=== PATIENT | female | born 1945 | race Caucasian/White ===

== ENCOUNTER → 2016-07-26 | Outpatient (CLI) | payer OTHER, MEDICARE ==
[2016-07-26 13:35] LABS: HEMOGLOBIN A1C 8.07 % (4.2-6.0); MEAN BLOOD GLUCOSE (CALC) 182.731 mg/dL
== END ==
LOC: MOB LAB 10:19
DX: E11.9 Type 2 diabetes mellitus without complications (principal); Z79.4 Long term (current) use of insulin
CPT/HCPCS: 36415; 83036

== ENCOUNTER → 2016-09-27 | Outpatient (CLI) | payer OTHER, MEDICARE ==
[2016-09-27 17:01] LABS: BUN/CREATININE RATIO 24.16 (6-20); CALCIUM 9.3 mg/dL (8.7-10.7); SERUM ALBUMIN 3.2 g/dL (3.5-4.8)
[2016-09-27 18:06] LABS: FREE T4 (FREE THYROXINE) 1.2 ng/dL (0.93-1.71)
== END ==
LOC: MOB LAB 14:29
DX: E11.9 Type 2 diabetes mellitus without complications (principal); Z79.4 Long term (current) use of insulin; E03.9 Hypothyroidism, unspecified; I10 Essential (primary) hypertension
CPT/HCPCS: 36415; 80053; 84439; 84443

== ENCOUNTER → 2016-11-24 | Outpatient (CLI) | payer OTHER, MEDICARE | LOC: MMPC 11:11 | DX: N12 Tubulo-interstitial nephritis, not specified as acute or chronic (principal); E11.9 Type 2 diabetes mellitus without complications; F03.90 Unspecified dementia, unspecified severity, without behavioral disturbance, psychotic disturbance, mood disturbance, and anxiety; I25.10 Atherosclerotic heart disease of native coronary artery without angina pectoris; I10 Essential (primary) hypertension; E78.5 Hyperlipidemia, unspecified; E66.9 Obesity, unspecified | CPT/HCPCS: 83037; 99213; G0463 ==

== ENCOUNTER 2018-01-28 20:21 | Inpatient (IN) ==
--- NOTE | 2018-01-28 21:08 | EKG ---
[address] [place] [address] Measurements Intervals [place] Rate: 81 P: 86 AK: 156 QRS: -1 QRSD: 97 T: 31 QT: 449 QTc: 486 Interpretive Statements SINUS RHYTHM NONSPECIFIC MODERATE ST DEPRESSION PROLONGED QT INTERVAL Compared to ECG 01/16/2018 08:37:19 Prolonged QT interval now present ST (T wave) deviation still present Electronically Signed On 01-30-18 15:19:08 MDT by Eric Champion [email or web address]
--- NOTE | 2018-01-28 21:28 | DI ---
EXAM: XR Chest, 2 Views CLINICAL HISTORY: ITS.REASON dyspnea Physician Notes: Tech Comments: TECHNIQUE: Frontal and lateral views of the chest. COMPARISON: No relevant prior studies available. FINDINGS: Lungs: Unremarkable. No consolidation. Pleural space: Unremarkable. No pneumothorax. Heart: Unremarkable. No cardiomegaly. Mediastinum: Unremarkable. Bones/joints: Unremarkable. IMPRESSION: Normal chest x-rays.
[2018-01-28 21:35] LABS: BASOPHILS # (AUTO) 0.07 10*3/UL; BASOPHILS % (AUTO) 0.8 % (0-1); EOSINOPHILS # (AUTO) 0.28 10*3/UL; EOSINOPHILS % (AUTO) 3.4 % (0-8); Hematocrit [HCT] 29.4 % (37.0-47.0); Hemoglobin [HGB] 9.6 g/dL (12.0-16.0); LYMPHOCYTES # (AUTO) 1.28 10*3/uL; MEAN CORPUSCULAR HEMOGLOBIN 32.8 PG (27-31); MEAN CORPUSCULAR HGB CONC 32.7 g/dL (33-37); MEAN CORPUSCULAR VOLUME 100.3 FL (81-99); MEAN PLATELET VOLUME 10.6 FL (7.4-12.2); MONOCYTES # (AUTO) 1.08 10*3/UL (0.3-0.8); NEUTROPHILS # (AUTO) 5.59 10*3/UL; NEUTROPHILS % (AUTO) 67.3 % (50-80); RED BLOOD COUNT 2.93 10^6/uL (4.20-5.40)
[2018-01-28 21:47] LABS: BLOOD UREA NITROGEN 40 mg/dL (7-22); BUN/CREATININE RATIO 21.05 (6-20); SERUM ALBUMIN 3.3 g/dL (3.5-4.8)
[2018-01-28 22:04] LABS: PLATELET MORPHOLOGY COMMENT NORMAL MORPHOLOGY (NORM); RBC MORPHOLOGY COMMENT NORMAL MORPHOLOGY (NORM); WBC MORPHOLOGY COMMENT NORMAL MORPHOLOGY (NORM)
[2018-01-28] MEDS ORDERED: FUROSEMIDE 10 MG/1 ML - 4 ML IVP ONE (22:17)
[2018-01-28 22:29] LABS: VENOUS PH 7.64 (7.32-7.42)
[2018-01-28] MEDS ORDERED: DOCUSATE 100 MG CAPSULE PO PRN (23:49)
[2018-01-28] MEDS ORDERED: FUROSEMIDE 20 MG TABLET PO SCH (23:49)
[2018-01-28] MEDS ORDERED: LIDOCAINE W/ SODIUM BICARB 0.5 ML SYR SUBD PRN (23:49)
[2018-01-28] MEDS ORDERED: ACETAMINOPHEN 325 MG TABLET PO PRN (23:49)
[2018-01-28] MEDS ORDERED: ONDANSETRON 4 MG/2 ML VIAL IVP PRN (23:49)
[2018-01-28] MEDS ORDERED: CALCIUM CARBONATE 500 MG (TUMS) CHEWABLE TABLET PO PRN (23:49)
[2018-01-29] MEDS: HEPARIN 5000 UNIT/1 ML SUBCUT SCH ×3 (00:34→15:28)
--- NOTE | 2018-01-29 00:45 | PDOC ---
HPI - History of Present Illness Date of Service: 01/29/18 Time of Service: 00:48 Chief Complaint: Hypoxic and short of breath History of Present Illness: This is a 73-year-old female with a history of a brain injury and short-term memory loss and worsening cognitive function lately who has been battling endstage aortic stenosis with cardiorenal syndrome and renal failure. Her history is obtained from her sister and her sons who are present this evening. Apparently about 2 weeks ago, the patient was found by her sister and severe shortness of breath and quite swollen. She was brought into the emergency room here in [place] and found to be in congestive heart failure and was sent to [place] for further evaluation. The patient has been there since at least January 16 and was discharged on 01/28/2018. Apparently around 4:00 today, p.m. , the patient developed hypoxia and was found to have an oxygen saturation of 88 %. The patient's daughter called [facility] in [place] to ask for device somewhat to do and they were instructed to call 911 and come in for evaluation. Oxygen seems to have helped the patient felt better here this evening and early in the morning on 01/29/2018. The patient's daughter states that the workup in [place] revealed nonoperative aortic stenosis and coronary artery disease and the patient is not a candidate for procedures on the valve or for stent placement. The daughter states that she was told that she had to bring the patient home for 24 hour/7 days a week care until alf placement could be obtained but they did not place the patient in a alf prior to discharge. The patient's daughter states that she had no choice but to take the patient home today. She did not feel that the patient was stable for discharge, but felt she had no other choice. She states that the kidney specialist also saw the patient in the hospital and as far as I can understand from the history, the patient is not a candidate for dialysis either. The patient had several medications changed, but continued to be short of breath and is actually worse in terms of shortness of breath and hypoxia today. The patient's sister stated that it took 3 people to get the patient into a van to bring her home here to [place] on the date of discharge. The patient required maximum assistance getting into the van. She has been described as having extreme short of breath and terms whether at rest or exercise, and that nothing really seemed to help it get better over the last 2 weeks. When I reviewed the medication list from the [facility], it appears that the patient's diuretic was changed from Lasix to torsemide and MATTHEW inhibitor was stopped. The family is not sure how aggressive they want to be in terms of treatment, and the patient's sister is the patient's power of transactional attorney, but they would like to speak further with the patient's regarding decisions towards care. For now they would like to continue with treatment of congestive heart failure and renal failure to the best of our ability although apparently they were told by the boiler coverer in [place] that there were no further options left for treatment. Hospice was discussed there, but apparently they were told that there were no transitional hospice services in the [place] area. Past Medical History Medical History: 1. Hx of UTI with sepsis X2. 2. Coronary artery disease, status post CABG 19 years ago. 3. pulmonary hypertension by echocardiogram done recently. 4. traumatic brain injury with cognitive impairment. 5. Hypertension. 6. end stage aortic stenosis, inoperable. 7. Diabetes mellitus type II, poorly controlled. 8. Hyperlipidemia. 9. cardiorenal syndrome with stage 4 CKD Surgical History: 1. CABG x3 vessels. 2. Cataract removal, remote. 3. Cholecystectomy Pertinent Family History: the patient is altered and cannot provide me a family history at this time. Past Social History: does not smoke or drink alcohol. . lives in [facility] in [place]. two healthy sons. Tobacco Use: Never Smoker In the Past 12 Months, Have Used or Abuse Any of the Following Substance: None Alcohol Use: None Medication / Allergies Home Medications: Home Medications 3 Medication Instructions Recorded Confirmed Type Cholecalciferol (Vitamin D3) 1 cap PO QD #30 cap 09/02/14 01/28/18 History [Vitamin D3] Aspirin 1 tab PO DAILY #30 tab 09/04/14 01/28/18 History Calcium Crb,Cit/D3/Min34/Chava 1 tab PO BID #60 tab 12/17/14 01/28/18 History [Citracal + Bone Density Tablet] Hydrocortisone Acetate [Anusol-Hc] 1 supp RECTAL BID PRN #12 supp 01/05/1701/28 History blood sugar diagnostic strips 1 strip MISCELLANEOUS BID PRN #100 07/14/17 Rx strip fluoxetine 40 mg capsule 40 mg PO QDAY #30 cap 08/22/17 01/28/18 Rx docusate sodium 100 mg capsule 100 mg PO QDAY 09/06/17 01/28/18 History magnesium chloride ER 64 mg 1 tab PO DAILY 09/06/17 01/28/18 History tablet,extended release multivitamin tablet 1 tab PO DAILY 09/06/17 01/28/18 History metoprolol tartrate 25 mg tablet 12.5 mg PO BID #30 tab 09/20/17 01/28/18 Rx simvastatin 20 mg tablet 20 mg PO QD #30 tab 09/20/17 01/28/18 Rx insulin detemir (U-100) 100 15 unit SUBCUT BID #10 ml 10/03/17 01/28/18 Rx unit/mL subcutaneous solution lisinopril 10 mg tablet 10 mg PO QDAY #30 tab 11/28/17 01/28/18 Rx levothyroxine 88 mcg tablet 88 mcg PO QDAY #30 tab 12/28/17 01/28/18 Rx Torsemide 20 mg PO BID 01/29/18 01/29/18 History Allergies/Adverse Reactions: Allergies 3 Allergy/AdvReac Type Severity Reaction Status Date / Time Iodinated Contrast- Oral and Allergy Severe Anaphylaxis Verified 01/16/18 08:28 IV Dye Review of Systems - Review of Systems ROS Unobtainable: Due to Mental Status (I cannot obtain a review of systems due to patient confusion and brain injury. Review of systems I could get was obtained from the patient's sister and sons.) - Constitutional Constitutional: REPORTS: General Health Poor, Weakness - Respiratory Respiratory: REPORTS: Dyspnea At Rest, Dyspnea with Exertion, Other (cyanotic with activity) - Cardiovascular Cardiovascular: REPORTS: Edema - Genitourinary Genitourinary: REPORTS: Other (history of urine infections) Exam - Vitals Vital Signs: Vital Signs Temperature 97.0 F Temperature Source Temporal Artery Scan Pulse Rate [Pulse Oximeter] 75 Respiratory Rate 18 Blood Pressure [Left Arm] 152/47 Pulse Ox 95 Oxygen Flow Rate 1 Oxygen Delivery Method Nasal Cannula Height 5 ft Weight 180 lb - General General Appearance: No Acute Distress, Cooperative, Obese - Head Head Exam: Normal Inspection, Normocephalic, Atraumatic - Eye Eye Exam: POSITIVE: No Scleral Icterus - ENT ENT Exam: POSITIVE: Mucous Membranes Moist - Neck Neck Exam: Normal Inspection, No Tenderness, No Lymphadenopathy, No Thyromegaly , JVP is not Raised - Respiratory Respiratory Exam: POSITIVE: Breathing Non Labored, Decreased Breath Sounds, Crackles (In the bases bilaterally, very soft crackles) - Cardiovascular Cardiovascular Exam: POSITIVE: RRR, No Clicks, No Gallops, No Rubs, Systolic Murmur - GI/Abdominal GI/Abdominal Exam: POSITIVE: Normal Bowel Sounds, Non Tender, Non Distended, Soft - Rectal Rectal Exam: POSITIVE: Deferred - External Exam: POSITIVE: Deferred Exam: POSITIVE: Deferred - Extremities Extremities Exam: POSITIVE: No Clubbing Present, No Edema Present, No Cyanosis Present (No cyanosis at this time. The patient's sister described that the patient was blue and cyanotic at the time of transfer into the van to get home on 01/28/2018) - Back Back Exam: POSITIVE: No CVA Tenderness - Neurological Neurological Exam: POSITIVE: Alert, No Facial Droop, Speech Intact / Clear, Moves All Extremities Equally, Altered (Oriented to person and to hospital but not to time and not to situation. She thought she was in the hospital in [place], [place].) - Psychiatric Psychiatric Exam: POSITIVE: Normal Affect, Normal Mood Results - Labs CBC and BMP: 01/28/18 21:15 01/28/18 21:15 Additional Lab Results: Laboratory Results 01/28/18 01/28/18 01/28/18 Range/Units 21:15 21:15 21:15 WBC (4.8-10.8) 10^3/uL RBC (4.20-5.40) 10^6/uL Hgb (12.0-16.0) g/dL Hct (37.0-47.0) % MCV (81-99) FL MCH (27-31) PG MCHC (33-37) g/dL RDW Std Deviation (39-50) fL RDW Coeff of Sravan (11.5-14.5) % Plt Count (140-350) 10*3/uL MPV (7.4-12.2) FL Immature Gran % (Auto) (0-5) % Neut % (Auto) (50-80) % Lymph % (Auto) (10-50) % [place] % (Auto) (5-15) % Eos % (Auto) (0-8) % Baso % (Auto) (0-1) % Immature Gran # (Auto) 10*3/UL Neut # (Auto) 10*3/UL Lymph # (Auto) 10*3/uL [place] # (Auto) (0.3-0.8) 10*3/UL Eos # (Auto) 10*3/UL Baso # (Auto) 10*3/UL WBC Morphology Comment (NORM) Plt Morphology Comment (NORM) RBC Morph Comment (NORM) PT 12.9 H (9.7-11.4) secs INR 1.25 (0.00-5.90) N/A D-Dimer 3.50 H (0.00-0.59) mg/L VBG pH (7.32-7.42) VBG pCO2 (45-55) mmHg VBG HCO3 (22-26) mmol/L VBG Base Excess (-2-2) MMOL/L Sodium (135-145) meq/L Potassium (3.8-5.2) meq/L Chloride (98-112) meq/L Carbon Dioxide (23-33) meq/L Anion Gap (5-20) BUN (7-22) mg/dL Creatinine (0.50-1.20) mg/dL Estimated GFR BUN/Creatinine Ratio (6-20) Glucose (78-110) mg/dL Calculated Osmolality (267-292) mOsm/kg Lactic Acid 2.4 H (0.70-2.10) MMOL/L Calcium (8.7-10.7) mg/dL Total Bilirubin (0.3-1.2) mg/dL AST (8-39) IU/L ALT (9-52) IU/L Alkaline Phosphatase (38-126) IU/L Total Creatine Kinase 67 (30-136) IU/L CK-MB (CK-2) (0.00-5.00) NG/ML Troponin I (< 0.040) ng/mL C-Reactive Protein 0.9 (0.0-0.9) mg/dL NT-Pro-B Natriuret Pep 5830 H (0-125) PG/ML Total Protein (6.1-8.0) g/dL Albumin (3.5-4.8) g/dL Globulin (2.50-4.10) g/dL Albumin/Globulin Ratio (1.3-2.0) mg/g 01/28/18 01/28/18 01/28/18 Range/Units 21:15 21:15 21:15 WBC 8.31 (4.8-10.8) 10^3/uL RBC 2.93 L (4.20-5.40) 10^6/uL Hgb 9.6 L (12.0-16.0) g/dL Hct 29.4 L (37.0-47.0) % MCV 100.3 H (81-99) FL MCH 32.8 H (27-31) PG MCHC 32.7 L (33-37) g/dL RDW Std Deviation 46.1 (39-50) fL RDW Coeff of Sravan 13.2 (11.5-14.5) % Plt Count 135 L (140-350) 10*3/uL MPV 10.6 (7.4-12.2) FL Immature Gran % (Auto) 0.1 (0-5) % Neut % (Auto) 67.3 (50-80) % Lymph % (Auto) 15.4 (10-50) % [place] % (Auto) 13.0 (5-15) % Eos % (Auto) 3.4 (0-8) % Baso % (Auto) 0.8 (0-1) % Immature Gran # (Auto) 0.01 10*3/UL Neut # (Auto) 5.59 10*3/UL Lymph # (Auto) 1.28 10*3/uL [place] # (Auto) 1.08 H (0.3-0.8) 10*3/UL Eos # (Auto) 0.28 10*3/UL Baso # (Auto) 0.07 10*3/UL WBC Morphology Comment Normal morphology (NORM) Plt Morphology Comment Normal morphology (NORM) RBC Morph Comment Normal morphology (NORM) PT (9.7-11.4) secs INR (0.00-5.90) N/A D-Dimer (0.00-0.59) mg/L VBG pH 7.64 H (7.32-7.42) VBG pCO2 29 L (45-55) mmHg VBG HCO3 32 H (22-26) mmol/L VBG Base Excess 11 H (-2-2) MMOL/L Sodium (135-145) meq/L Potassium (3.8-5.2) meq/L Chloride (98-112) meq/L Carbon Dioxide (23-33) meq/L Anion Gap (5-20) BUN (7-22) mg/dL Creatinine (0.50-1.20) mg/dL Estimated GFR BUN/Creatinine Ratio (6-20) Glucose (78-110) mg/dL Calculated Osmolality (267-292) mOsm/kg Lactic Acid (0.70-2.10) MMOL/L Calcium (8.7-10.7) mg/dL Total Bilirubin (0.3-1.2) mg/dL AST (8-39) IU/L ALT (9-52) IU/L Alkaline Phosphatase (38-126) IU/L Total Creatine Kinase (30-136) IU/L CK-MB (CK-2) 0.92 (0.00-5.00) NG/ML Troponin I 0.052 H (< 0.040) ng/mL C-Reactive Protein (0.0-0.9) mg/dL NT-Pro-B Natriuret Pep (0-125) PG/ML Total Protein (6.1-8.0) g/dL Albumin (3.5-4.8) g/dL Globulin (2.50-4.10) g/dL Albumin/Globulin Ratio (1.3-2.0) mg/g 01/28/18 Range/Units 21:15 WBC (4.8-10.8) 10^3/uL RBC (4.20-5.40) 10^6/uL Hgb (12.0-16.0) g/dL Hct (37.0-47.0) % MCV (81-99) FL MCH (27-31) PG MCHC (33-37) g/dL RDW Std Deviation (39-50) fL RDW Coeff of Sravan (11.5-14.5) % Plt Count (140-350) 10*3/uL MPV (7.4-12.2) FL Immature Gran % (Auto) (0-5) % Neut % (Auto) (50-80) % Lymph % (Auto) (10-50) % [place] % (Auto) (5-15) % Eos % (Auto) (0-8) % Baso % (Auto) (0-1) % Immature Gran # (Auto) 10*3/UL Neut # (Auto) 10*3/UL Lymph # (Auto) 10*3/uL [place] # (Auto) (0.3-0.8) 10*3/UL Eos # (Auto) 10*3/UL Baso # (Auto) 10*3/UL WBC Morphology Comment (NORM) Plt Morphology Comment (NORM) RBC Morph Comment (NORM) PT (9.7-11.4) secs INR (0.00-5.90) N/A D-Dimer (0.00-0.59) mg/L VBG pH (7.32-7.42) VBG pCO2 (45-55) mmHg VBG HCO3 (22-26) mmol/L VBG Base Excess (-2-2) MMOL/L Sodium 133 L (135-145) meq/L Potassium 3.5 L (3.8-5.2) meq/L Chloride 91 L (98-112) meq/L Carbon Dioxide 32 (23-33) meq/L Anion Gap 10 (5-20) BUN 40 H (7-22) mg/dL Creatinine 1.9 H (0.50-1.20) mg/dL Estimated GFR Barrel Drum Cutter BUN/Creatinine Ratio 21.05 H (6-20) Glucose 224 H (78-110) mg/dL Calculated Osmolality 292.0 (267-292) mOsm/kg Lactic Acid (0.70-2.10) MMOL/L Calcium 10.1 (8.7-10.7) mg/dL Total Bilirubin 0.9 (0.3-1.2) mg/dL AST 66 H (8-39) IU/L ALT 43 (9-52) IU/L Alkaline Phosphatase 102 (38-126) IU/L Total Creatine Kinase (30-136) IU/L CK-MB (CK-2) (0.00-5.00) NG/ML Troponin I (< 0.040) ng/mL C-Reactive Protein (0.0-0.9) mg/dL NT-Pro-B Natriuret Pep (0-125) PG/ML Total Protein 6.6 (6.1-8.0) g/dL Albumin 3.3 L (3.5-4.8) g/dL Globulin 3.3 (2.50-4.10) g/dL Albumin/Globulin Ratio 1.00 L (1.3-2.0) mg/g - EKG Data -: EKG Interpreted by Me Rate: Normal EKG Shows Normal: Sinus Rhythm - EKG Data EKG Interpretation: Nonspecific ST-T Wave Changes (Has what appears to be ST depression, albeit mild, noted in V4 through V6 and lead 1) - Imaging Status: Image Reviewed by Me (Chest x-ray shows what appears to be a globular heart, possible minimal blunting of the left costophrenic angle, signs of prior CABG are noted) Assessment and Plan - Patient Problems (1) End stage congestive heart failure Current Visit: Yes Status: Acute Code(s): I50.84 - End stage heart failure (2) Aortic stenosis Current Visit: Yes Status: Acute Code(s): I35.0 - Nonrheumatic aortic (valve ) stenosis (3) Chronic renal disease, stage IV Current Visit: Yes Status: Acute Code(s): N18.4 - Chronic kidney disease, stage 4 (severe) (4) Cardiorenal syndrome with renal failure Current Visit: Yes Status: Acute Code(s): I13.10 - Hypertensive heart and chronic kidney disease without heart failure, with stage 1 through stage 4 chronic kidney disease, or unspecified chronic kidney disease; N19 - Unspecified kidney failure (5) Hyperlipidemia Current Visit: No Status: Chronic Onset Date: 04/18/13 Code(s): E78.5 - Hyperlipidemia, unspecified Qualifiers: Hyperlipidemia type: unspecified Qualified Code(s): E78.5 - Hyperlipidemia , unspecified (6) Essential hypertension Current Visit: Yes Status: Chronic Onset Date: 04/18/13 Code(s): I10 - Essential (primary) hypertension (7) DM w/o complication type II Current Visit: Yes Status: Chronic Onset Date: 10/22/14 Code(s): E11.9 - Type 2 diabetes mellitus without complications Qualifiers: Diabetes mellitus termite control representative insulin use: with termite control representative use Qualified Code( s): E11.9 - Type 2 diabetes mellitus without complications; Z79.4 - regional intermodal truck driver ( current) use of insulin (8) History of traumatic brain injury Current Visit: Yes Status: Chronic Code(s): Z87.820 - Personal history of traumatic brain injury (9) Pulmonary hypertension Current Visit: Yes Status: Suspected Code(s): I27.2 - Other secondary pulmonary hypertension - Assessment / Plan Additional Assessment/Plan Details: Complex admission and that the patient has what appears to be refractory congestive heart failure related to valvular heart disease, and refractory cardiorenal syndrome with renal failure. She is really out of options in terms of treatment. It appears that they've been switching off diuretics to try and improve diuresis, but the patient remains short of breath both at rest and with activities for class for [place] [employer] congestive heart failure symptomatology. She is not a candidate for valve replacement. She is not a candidate for intervention on coronary arteries, particularly with renal failure. She is not a candidate for dialysis. This is all based on age, comorbidities, and history of brain injury with worsening orientation and memory issues. For now, try to diurese, continue oxygen, continue medications for afterload reduction, and likely seek placement in alf if we can stabilize medical condition enough to get the patient there. Some end-of-life discussions will likely take place during the hospital stay and started those tonight. The patient's sister and her son that lives here in [place] do agree that the patient is dying but they are not sure when the best timing will be for considering treatment of primary symptoms of pain and discomfort versus aggressive medical therapy. For now, they would like to continue to treat medically. Patient's CODE STATUS is DO NOT RESUSCITATE. When I spoke with the patient, she stated "I feel good". She stated that a proximally 10 times during the interview and history, but had no further comments on history of present illness her condition. She realized that she was in the hospital, but felt that she was in [place]. She had no idea why she was in the hospital. She did appear to be pleasant, and did not appear to be in overt distress or advanced respiratory failure. I will try to get records tomorrow from [facility] to review further. I made sure to tell the family that I would try to do my best to keep the patient is comfortable as possible but I certainly did not guarantee any outcomes and I think prognosis is quite poor and in fact I think the patient would be a good hospice candidate as I think she has less than 6 months to live based on her severe, end-stage valve disease, congestive heart failure, and cardiorenal syndrome.
[2018-01-29] MEDS ORDERED: DEXTROSE 50%-WATER SYRINGE 50 ML SYRINGE IVP PRN (01:15)
[2018-01-29] MEDS ORDERED: Glucagon Inj Vial 1 MG/ML VIAL IM PRN (01:15)
[2018-01-29] MEDS ORDERED: Insulin Sliding Scale Protocol SUBCUT PRN (01:15)
[2018-01-29] MEDS ORDERED: DEXTROSE 31 GM GEL PO PRN (01:15)
[2018-01-29] MEDS ORDERED: LIDOCAINE HCL 2 % 10 ML JELLY URO-JECT TOPICAL PRN (01:16)
[2018-01-29] MEDS ORDERED: LEVOTHYROXINE 88 MCG TABLET PO SCH (05:30)
[2018-01-29] MEDS: TORSEMIDE 20 MG PO SCH ×2 (06:30→16:08)
[2018-01-29] MEDS: Insulin Lispro Flexpen 300 UNIT/3 ML INSULN.PEN SUBCUT SCH ×3 (08:03→18:05)
[2018-01-29] MEDS: HYDRALAZINE 10 MG TABLET PO SCH ×2 (08:04→15:28)
[2018-01-29] MEDS ORDERED: TORSEMIDE 20 MG PO SCH (09:00)
[2018-01-29] MEDS ORDERED: METOPROLOL SUCCINATE 25 MG SR 24H TABLET PO SCH (09:00)
[2018-01-29] MEDS ORDERED: AmLODIPine Tab 5 MG TABLET PO SCH (09:00)
[2018-01-29] MEDS ORDERED: Multivitamin Tab 1 TAB PO SCH (09:00)
[2018-01-29] MEDS ORDERED: CHOLECALCIFEROL 1000 IU TABLET PO SCH (09:00)
[2018-01-29] MEDS ORDERED: FLUoxetine 20 MG CAPSULE PO SCH (09:00)
[2018-01-29] MEDS ORDERED: ASPIRIN 325 MG TABLET PO SCH (09:00)
[2018-01-29] MEDS ORDERED: Insulin Detemir 300unit/3ml Flexpen SUBCUT SCH (09:00)
[2018-01-29] MEDS ORDERED: Metoprolol TARTRATE Tab 25 MG TAB PO SCH (09:00)
[2018-01-29] MEDS ORDERED: Simvastatin Tab 20 MG TAB PO SCH (09:00)
[2018-01-29] MEDS ORDERED: DOCUSATE 100 MG CAPSULE PO SCH (09:00)
--- NOTE | 2018-01-29 14:54 | PDOC(PROG) ---
Date of Service: 01/29/18 Time of Service: 14:50 Interval History: Patient seen and evaluated earlier today. Has been very weak, maximum assist. Nurse reports shortness of breath in bed. Patient's sister felt that the patient was a little bit better in terms of her shortness of breath. She is complained of some pain although she denied any to me. Overall not a lot of change in her appearance. Objective : Data - Labs CBC and BMP: 01/28/18 21:15 01/28/18 21:15 Objective : Exam - General General Appearance: No Acute Distress, Cooperative Additional General Exam Details: Vital Signs - Last Taken Temperature 98 F 01/29/18 11:02 Pulse Rate 68 01/29/18 11:02 Respiratory Rate 20 01/29/18 11:02 Blood Pressure 132/51 01/29/18 11:02 Pulse Ox 97 01/29/18 11:02 - Eye Eye Exam: No Scleral Icterus - ENT ENT Exam: Mucous Membranes Moist - Neck Neck Exam: JVP is not Raised - Respiratory Respiratory Exam: Breathing Non Labored, Crackles - Cardiovascular Cardiovascular Exam: RRR, No Clicks, No Gallops, No Rubs, Systolic Murmur, No JVD - GI/Abdominal GI/Abdominal Exam: Normal Bowel Sounds, Non Tender, Non Distended, Soft - Extremities Extremities Exam: No Clubbing Present, No Edema Present, No Cyanosis Present - Neurological Neurological Exam: Alert, No Facial Droop, Speech Intact / Clear, Moves All Extremities Equally Additional Neurological Exam Details: Not oriented to time or situation Assessment and Plan - Patient Problems (1) End stage congestive heart failure Current Visit: Yes Status: Acute Code(s): I50.84 - End stage heart failure (2) Cardiorenal syndrome with renal failure Current Visit: Yes Status: Acute Code(s): I13.10 - Hypertensive heart and chronic kidney disease without heart failure, with stage 1 through stage 4 chronic kidney disease, or unspecified chronic kidney disease; N19 - Unspecified kidney failure (3) Aortic stenosis Current Visit: Yes Status: Acute Code(s): I35.0 - Nonrheumatic aortic (valve ) stenosis Qualifiers: Cardiac valve disease etiology: etiology unspecified Qualified Code(s): I35.0 - Nonrheumatic aortic (valve) stenosis (4) Chronic renal disease, stage IV Current Visit: Yes Status: Acute Code(s): N18.4 - Chronic kidney disease, stage 4 (severe) (5) Hyperlipidemia Current Visit: No Status: Chronic Onset Date: 04/18/13 Code(s): E78.5 - Hyperlipidemia, unspecified Qualifiers: Hyperlipidemia type: unspecified Qualified Code(s): E78.5 - Hyperlipidemia , unspecified (6) Essential hypertension Current Visit: Yes Status: Chronic Onset Date: 04/18/13 Code(s): I10 - Essential (primary) hypertension (7) DM w/o complication type II Current Visit: Yes Status: Chronic Onset Date: 10/22/14 Code(s): E11.9 - Type 2 diabetes mellitus without complications Qualifiers: Diabetes mellitus superintendent marine oil terminal insulin use: with superintendent marine oil terminal use Qualified Code( s): E11.9 - Type 2 diabetes mellitus without complications; Z79.4 - alf ( current) use of insulin (8) History of traumatic brain injury Current Visit: Yes Status: Chronic Code(s): Z87.820 - Personal history of traumatic brain injury (9) Pulmonary hypertension Current Visit: Yes Status: Suspected Code(s): I27.2 - Other secondary pulmonary hypertension - Assessment / Plan Additional Assessment/Plan Details: My hope is to sit down with the patient's , sons, and sister and discuss direction of care as to whether or not we should proceed with medical management of these issues or whether they will are considering hospice or other potential end-of-life situations. She is clearly not well from her heart failure and is quite dyspneic even at rest and will not be able to go home. She will need 24 7 care at a [facility] at a minimum. Labs in a.m. Continue torsemide and other medications as ordered including afterload reduction. If the patient develops more pain, we will have to address how aggressively get with this with the family as well. Overall prognosis very guarded, and given the stage III to stage IV congestive heart failure, more stage IV and lack of candidacy for procedures and aggressive therapy such as inotropes, I suspect that the patient could regardless of medical therapy or not.
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
[2018-01-29] MEDS ORDERED: SCOPOLAMINE HYDROBROMIDE 1.5 MG - 1 EACH PATCH TRANSDERM ONE (18:13)
[2018-01-29] MEDS ORDERED: Morphine Syringe 300mg/30ml 300 MG/30 ML PCA.SYRING IV SCH (18:15)
[2018-01-29] MEDS: LORazepam 2 MG/1 ML VIAL IVP PRN (20:28)
[2018-01-29] MEDS ORDERED: Sodium Chloride 0.9% 1,000 ML PRIMARY IV SCH (20:30)
[2018-01-30 06:36] VITALS: BP 89/38; RESP 6; TEMP 97.1; O2SAT 90
[2018-01-30] MEDS: LORazepam 2 MG/1 ML VIAL IVP PRN (11:11)
--- NOTE | 2018-01-30 13:58 | DCSUMMARY ---
Hospitalization Summary Admit Date: 01/29/2018 Discharge Date: 01/30/18 Primary Diagnosis:: end-stage, class IV congestive heart failure Secondary Diagnosis:: Critical aortic stenosis Hospital Course: This is a 73-year-old female that presented with end-stage congestive heart failure with symptoms at rest, stage IV, class D congestive heart failure. She is not a candidate for aortic valve repair, stent placement, or inotropes or other procedures to manage his congestive heart failure. Patient was initiated on torsemide therapy, and in discussion with the family, we determine that the patient would regardless of medical therapy or nonmedical therapy and the family requested that I treat her primary symptoms of pain and discomfort. Patient was placed on morphine and initially was supposed to be on 5 mg per hour but was inadvertently placed on 50 mg per hour for 3 hours before that dose was recognized as being incorrect. This was discussed with the family at length at bedside. The patient survived that dose, and was placed back to 6 mg per hour. Incrementally, the patient remained pain-free and did not have any respiratory distress and she passed on 01/30/2018 at 1314 due to end-stage, stage IV congestive heart failure related to critical aortic stenosis and depressed ejection fraction of 47%. She also had end-stage cardiorenal syndrome. All questions for the family were answered. Exam - Vitals Vital Signs: Vital Signs On examination: Pupils were fixed, dilated, and unresponsive to light. There were no spontaneous respirations. There were no breath sounds on auscultation. There were no heart sounds on auscultation. There was no palpable pulse. Patient Problems - Patient Problem List (1) End stage congestive heart failure Current Visit: Yes Status: Acute Code(s): I50.84 - End stage heart failure Category: Medical (2) Cardiorenal syndrome with renal failure Current Visit: Yes Status: Acute Code(s): I13.10 - Hypertensive heart and chronic kidney disease without heart failure, with stage 1 through stage 4 chronic kidney disease, or unspecified chronic kidney disease; N19 - Unspecified kidney failure Category: Medical (3) Aortic stenosis Current Visit: Yes Status: Acute Code(s): I35.0 - Nonrheumatic aortic (valve ) stenosis Qualifiers: Cardiac valve disease etiology: etiology unspecified Qualified Code(s): I35.0 - Nonrheumatic aortic (valve) stenosis Category: Medical (4) Chronic renal disease, stage IV Current Visit: Yes Status: Acute Code(s): N18.4 - Chronic kidney disease, stage 4 (severe) Category: Medical (5) Hyperlipidemia Current Visit: No Status: Chronic Onset Date: 04/18/13 Code(s): E78.5 - Hyperlipidemia, unspecified Qualifiers: Hyperlipidemia type: unspecified Qualified Code(s): E78.5 - Hyperlipidemia , unspecified Category: Medical (6) Essential hypertension Current Visit: Yes Status: Chronic Onset Date: 04/18/13 Code(s): I10 - Essential (primary) hypertension Category: Medical (7) DM w/o complication type II Current Visit: Yes Status: Chronic Onset Date: 10/22/14 Code(s): E11.9 - Type 2 diabetes mellitus without complications Qualifiers: Diabetes mellitus termite helper insulin use: with termite helper use Qualified Code( s): E11.9 - Type 2 diabetes mellitus without complications; Z79.4 - terminal clerk ( current) use of insulin Category: Medical (8) History of traumatic brain injury Current Visit: Yes Status: Chronic Code(s): Z87.820 - Personal history of traumatic brain injury Category: Social Hx (9) Pulmonary hypertension Current Visit: Yes Status: Suspected Comment: This was noted on echocardiogram a prior admission. Code(s): I27.2 - Other secondary pulmonary hypertension Category: Medical
[2018-02-01] MEDS ORDERED: [UNRECOGNIZED DRUG - OTHER] TRANSDERM ONE (18:30)
== END 2018-01-30 13:14 | disposition expired | DRG 684 ==
LOC: ER 20:21 → MED/SURG 23:13
PROVIDERS: ADMIT Family Medicine; ATTEND Family Medicine